=== PATIENT | female | born 1960 | race Caucasian/White ===

== ENCOUNTER → 2019-10-02 08:30 | Outpatient (CLI) | payer OTHER, SELFPAY ==
[2019-10-02 10:42] LABS: Anion Gap 5 (5-15); BUN 22 mg/dL (7-18); BUN/Creat Ratio 25.3 RATIO (10-20); Calcium,Total 9.8 mg/dL (8.5-10.1); Chloride 110 mmol/L (98-107); Creatinine, Serum 0.87 mg/dL (0.55-1.02); EST Glomerular Filtration Rate 71 mL/min (>60); Est Glom Filt Rate - Afr Amer 86 mL/min (>60); Glucose 87 mg/dL (74-106); PTHIN 34.3 pg/mL (18.4-80.1); Potassium 4.2 mmol/L (3.5-5.1); Sodium Level 143 mmol/L (136-145); Vitamin D,25 Hydroxy 39.5 ng/mL (29.95-100.01)
== END ==
PROVIDERS: Family Provider Family Medicine; PCP Family Medicine
DX: E21.0 Primary hyperparathyroidism (principal); E83.52 Hypercalcemia; R00.0 Tachycardia, unspecified; E55.9 Vitamin D deficiency, unspecified
CPT/HCPCS: 36415; 80048; 82306; 82330; 83970; 84443

== ENCOUNTER → 2020-01-28 11:51 | Outpatient (CLI) | payer OTHER, SELFPAY ==
--- NOTE | 2020-01-28 11:53 | RAD_ITS ---
STUDY: X-RAY CHEST REASON FOR EXAM: Female, 59 years old. Cough, wheezing x 2 weeks TECHNIQUE: PA and lateral views of the chest. COMPARISON: None. FINDINGS: Cardiac silhouette unremarkable. Pulmonary vascularity unremarkable. Aorta unremarkable. No focal airspace opacities. No pleural effusions. Upper abdomen unremarkable. Osseous structures intact. No pneumothorax. RAD/Chest PA and Lateral IMPRESSION: No acute cardiopulmonary findings Electronically Signed: Loy Hernandez, at 21:53 EDT Tel , Service support ,
== END ==
PROVIDERS: PCP Family Medicine; Referring Provider Family Medicine; Visit Provider Family Medicine
DX: R06.2 Wheezing (principal); R05 Cough
CPT/HCPCS: 71046

== ENCOUNTER 2020-02-02 17:25 | Emergency (ER) | payer OTHER, SELFPAY ==
[2020-02-02 17:26] VITALS: BP 144/89; PULSE 87; RESP 16; TEMP 36.6; O2SAT 100; BMI 24.6
--- NOTE | 2020-02-02 18:08 | ED.VIS.GEN ---
History of Present Illness Chief Complaint: Hypertension Informant: Patient Onset: Days Context: Sudden Onset Timing: Continuous Quality: Elevated blood pressure and URI symptoms Current Severity: Mild Maximum Severity: Moderate Worsened by: Anxiety, respiratory symptoms worse with activity. Relieved by: Dyspnea improves with rest. Associated Symptoms: Shaking chills, malaise and fatigue Narrative: Patient contacted her primary care physician because of her blood pressure readings at home she was instructed to come to the emergency department. Patient has no neurologic symptoms. She has no ocular symptoms. She has no difficulty with speech or swallowing. She denies chest pain or back pain. She does give respiratory symptoms and consistent with infectious etiology. This may represent bacterial or viral. Since symptoms started greater than 3 weeks ago and are improving and she is not hypoxic or febrile or tachypneic imaging was not obtained. Prior similar symptoms: No Recent Illness/Hospitalization: No - Past Medical History (1) No significant past medical history Status: Acute Past Medical History - Allergies and Home Meds Allergies/Adverse Reactions: Allergies Penicillins Allergy (Verified 02/02/20 17:29) Hives Sulfa (Sulfonamide Antibiotics) Adverse Reaction (Verified 02/02/20 17:29) Upset Stomach Primary Care Physician: Shani Villanueva MD [Primary Care Provider] - Prior records reviewed: No Past Medical History: None Surgical History: no surgical history Lives: Spouse/ Significant Other Smoking Status: Never smoker Alcohol: None Drugs: None Review of Systems General: Reports: Chills, Malaise, Sweats. Denies: Fever, Subjective, Weight loss, - Eyes: Denies: Visual changes - bilaterally, Blurred Vision - bilaterally ENT: Reports: Rhinorrhea, Sore throat. Denies: Bilateral ear pain Cardiovascular: Reports: Heart racing - Patient had 3 heart tracings and the fastest her heart rate was 101. The other tracing revealed a sinus rhythm rate of 93 and third tracing was sinus rhythm with a rate of 78.. Denies: Chest pain, Palpitations Respiratory: Reports: Dyspnea, Cough, Dyspnea on exertion. Denies: Sputum, Orthopnea, Paroxysmal nocturnal dyspnea Gastrointestinal: Denies: Abdominal pain, Nausea, Vomiting, Diarrhea, Melena, Hematochezia Genitourinary: Denies: Dysuria, Hematuria, Frequency Musculoskeletal: Denies: Myalgias, Arthralgias, Neck pain, Back pain, Swelling, Extremity Pain, -, - Skin: Denies: Rash, Wounds Neurological: Reports: - - Denies problems with balance or coordination. She denies motor weakness.. Denies: Headache, Weakness, Parasthesia, Numbness Hematologic: Denies: Easy bruising, Easy bleeding Allergy: Denies: Uticaria Physical Exam Vital Signs/Narrative: Vital Signs Temp Pulse Resp BP Pulse Ox 02/02/20 17:26 97.8 F 87 16 144/89 H 100 Inital Vital Signs reviewed: Yes General: Well nourished, Well developed, No Acute Distress, - Head: Normocephalic, Atraumatic Eyes: Perrl, EOMI, - - Endoscopic exam reveals normal cup-to-disc ratio. There is no papilledema. There is no AV nicking. There is no exudate or hemorrhage noted.. Negative for: Pale conjunctiva, Scleral icterus ENT: Moist mucous membranes, TM's clear, Nasal congestion. Negative for: No rhinorrhea Neck: Supple, Nontender, No lymphadenopathy, No JVD Cardiovascular: Regular rate, Regular rhythm, No murmurs, Normal S1, Normal S2 Respiratory: No distress, CTA bilaterally, Chest nontender Abdomen: Soft, Nontender, Nondistended, Normal bowel sounds Rectal: Deferred Back: Nontender, Normal Inspection Extremities: Nontender, No edema. Negative for: Calf Tenderness Skin: Normal color, No rash, No Trauma. Negative for: Cyanosis, Diaphoresis, Jaundice Neurological: Alert, Oriented x3, Cranial nerves II-XII grossly intact, Normal Strength, Normal Sensation, Normal DTR - 1+ symmetric upper and lower extremity and right to left, Normal Gait, - - Cerebellar testing normal. Psychological: Normal affect, Normal Mood Diagnostic/Tx/Re-eval Laboratory Results 02/02/20 02/02/20 17:35 18:00 Sodium 141 Potassium 3.5 Chloride 108 H Carbon Dioxide 29.0 Anion Gap 4 L BUN 21 H Creatinine 0.85 Estim Creat Clear Calc 59.68 Est GFR (MDRD) Af Amer 89 Est GFR (MDRD) Non-Af 73 BUN/Creatinine Ratio 24.8 H Glucose 117 H Calcium 9.8 Urine Color Yellow Urine Clarity Clear Urine pH 7.0 Ur Specific [place] 1.010 Urine Protein Negative Urine Glucose (UA) Normal Urine Ketones Negative Urine Occult Blood Negative Urine Nitrite Negative Urine Bilirubin Negative Urine Urobilinogen Normal Ur Leukocyte Esterase Negative Urine RBC 0 SEEN Urine WBC 0 SEEN Ur Squamous Epith Cells 0-5 SEEN Urine Bacteria 0 SEEN Urine Mucus 0 SEEN There is no evidence of endorgan injury. Most recent blood pressure was 131/84. Patient was instructed to follow-up with her primary care physician. From a respiratory standpoint patient is a 2-year 5 patient for novel coronavirus and per the [facility] and the [facility] medical board testing is not indicated - Medical Decision Making Since patient's respiratory symptoms are improving and her vital signs are unremarkable imaging was not obtained. Because patient's blood pressure was elevated last time it was checked with 3 to 4 months ago will obtain basic metabolic panel to assess renal function and UA to assess for proteinuria and hematuria. If her blood pressure remains elevated will consider starting on antihypertensive medication. ED Disposition - Plan for ED Patient: Disposition: Home or Assisted Living Diagnosis: Suspected 2019 novel coronavirus infection, Viral upper respiratory tract infection with cough, Elevated blood pressure reading without diagnosis of hypertension Instructions: HYPERTENSION, To Be Confirmed Referrals: Shani Villanueva MD [Primary Care Provider] - 1-2 Weeks
[2020-02-02 18:10] LABS: Bacteria 0 SEEN /hpf (None Seen); Mucous, Urine 0 SEEN /hpf (<or=2+); Red Blood Cells-Urine 0 SEEN /hpf (0-5); White Blood Cells 0 SEEN /hpf (0-5)
[2020-02-02 18:20] LABS: Color, Urine Yellow (Yellow); Glucose, Dipstick Normal (Normal); Ketone-Dipstick Negative (Negative); Leukocyte Esterase-Dipstick Negative /ul (Negative); Nitrite-Dipstick Negative (Negative); Occult Blood-Urine Negative /ul (Negative); Protein-Dipstick Negative (Negative); Urine Bilirubin Dipstick Negative (Negative); Urine Clarity Clear (Clear); Urine Urobilinogen Normal (Normal)
[2020-02-02 18:25] LABS: Squamous Epithelial Cells - UA 0-5 SEEN /hpf (5-10)
[2020-02-02 18:29] LABS: Anion Gap 4 (5-15); BUN 21 mg/dL (7-18); BUN/Creat Ratio 24.8 RATIO (10-20); Calcium,Total 9.8 mg/dL (8.5-10.1); Chloride 108 mmol/L (98-107); Creatinine, Serum 0.85 mg/dL (0.55-1.02); EST Glomerular Filtration Rate 73 mL/min (>60); Est Glom Filt Rate - Afr Amer 89 mL/min (>60); Estimated Creatinine Clearance 59.68 ml/min; Glucose 117 mg/dL (74-106); Potassium 3.5 mmol/L (3.5-5.1); Sodium Level 141 mmol/L (136-145)
[2020-02-02 19:19] VITALS: BP 131/84; PULSE 88; RESP 16; O2SAT 100
== END 2020-02-02 19:27 | disposition home or self-care (01) ==
PROVIDERS: Emergency Provider Emergency Medicine; PCP Family Medicine
DX: R03.0 Elevated blood-pressure reading, without diagnosis of hypertension (principal); J06.9 Acute upper respiratory infection, unspecified
CPT/HCPCS: 80048; 81001; 99282

== ENCOUNTER → 2022-05-01 | Outpatient (CLI) | payer OTHER, SELFPAY ==
[2022-05-01 09:52] LABS: Hematocrit 43.3 % (37-47); Hemoglobin 14.3 g/dL (12.0-15.0); Mean Corpuscular Hgb 30.7 pg (27.0-32.0); Mean Corpuscular Volume 92.9 fL (81-99); Mean Platelet Vol. 9.2 fl (6.2-12.0); Platelet Count 260 K/mm3 (150-450); RBC Distribution Width CV 13.5 % (11.6-14.6); RBC Distribution Width SD 45.9 fl (35.1-43.9); Red Blood Count 4.66 M/mm3 (4.2-5.4); White Blood Count 10.9 K/mm3 (4.4-11.0)
[2022-05-01 10:23] LABS: ALB/GLOB Ratio 1.1 RATIO (0.9-2.4); AST(SGOT) 17 U/L (15-37); Alanine Aminotransfer ALT/SGPT 32 U/L (13-56); Albumin, Serum 3.8 g/dL (3.2-5.0); Alkaline Phosphatase 74 U/L (45-117); Anion Gap 9 (5-15); BUN 16 mg/dL (7-18); BUN/Creat Ratio 18.2 RATIO (10-20); Calcium,Total 9.9 mg/dL (8.5-10.1); Chloride 106 mmol/L (98-107); Cholesterol 199 mg/dL (200); Creatinine, Serum 0.88 mg/dL (0.55-1.02); EST Glomerular Filtration Rate 69 mL/min (>60); Est Glom Filt Rate - Afr Amer 84 mL/min (>60); Globulin 3.4 g/dL (2.2-4.2); Glucose 83 mg/dL (74-106); High Density Lipoprotein 68 mg/dL; Potassium 3.8 mmol/L (3.5-5.1); Protein, Total 7.2 g/dL (6.4-8.2); Sodium Level 142 mmol/L (136-145); Triglycerides 158 mg/dL; Very Low Density Lipoprotein 32 mg/dL (5-40)
== END | disposition home or self-care (01) ==
PROVIDERS: PCP Family Medicine
DX: R03.0 Elevated blood-pressure reading, without diagnosis of hypertension (principal)
CPT/HCPCS: 36415; 80053; 80061; 85027

== ENCOUNTER → 2022-12-07 | Outpatient (CLI) | payer OTHER, SELFPAY ==
[2022-12-07 12:46] LABS: Free T3 2.8 pg/mL (2.18-3.98); T4 Free Direct 1.07 ng/dL (0.76-1.46); Thyroid Stim Hormone (TSH) 1.62 uIU/mL (0.358-3.74)
[2022-12-10 20:55] LABS: Anti-Thyroglobulin AB < 1.0 IU/mL (0.0-0.9); Thyroid Peroxidase AB 11 IU/mL (0-34)
== END | disposition home or self-care (01) ==
PROVIDERS: PCP Family Medicine
DX: L65.9 Nonscarring hair loss, unspecified (principal)
CPT/HCPCS: 36415; 84432; 84439; 84443; 84481; 86376; 86800

== ENCOUNTER 2024-07-26 09:55 | Emergency (ER) | payer OTHER, SELFPAY ==
[2024-07-26 09:56] VITALS: BP 158/79; PULSE 83; RESP 16; TEMP 36.6; O2SAT 100; BMI 27.3
--- NOTE | 2024-07-26 10:49 | EX.ED.DYSGE1 ---
HPI History of Present Illness Chief Complaint: Rash Detail of Chief Complaint: Rash Informant: patient Narrative Narrative: Patient presents with a rash that started 5 days ago. Patient states initially she had a swollen lymph node in the right side of her face for which she started taking some clindamycin that she had leftover for a couple of days and then that resolved. [place] 3 small lesions on her right hand that then progressed. She was seen by primary care physician who then started her on low-dose prednisone. Subsequently she developed more lesions and followed up with a human resources office manager 3 days ago who did a skin biopsy and was started on 60 mg of prednisone daily. Patient states that subsequently she developed lesions in her mouth and called dermatology and was told that they thought she could have [id number]-mouth. Patient then read online that prednisone could potentially make the symptoms worse. She comes in for evaluation. She denies fevers or chills or sweats. She denies recent illness otherwise. [facility] Medical History (Updated 07/26/24 @ 12:[address] Rubi Amaya, DO) Heart disease Home Medications ?Medication ?Instructions ?Recorded ?Last Taken ?Type amlodipine 2.5 mg tablet 2.5 mg PO DAILY 03/28/21 Unknown History budesonide 32 mcg/actuation nasal 1 spray intranasal DAILY 03/28/21 Unknown History spray (Rhinocort Allergy) MAGIC MOUTH WASH (BMX) 180 mL 10 ml PO Q6H PRN PRN pain #180 mL 07/26/24 Unknown Rx suspension Allergy/AdvReac Type Severity Reaction Status Date / Time Penicillins Allergy Hives Verified 03/28/21 08:15 Sulfa (Sulfonamide AdvReac Upset Verified 03/28/21 08:15 Antibiotics) Stomach Surgical History (Updated 03/28/21 @ 08:17 by Malu Hernandez RN) Hx of cholecystectomy Social History Smoking Status: Never smoker ROS ROS ED Review of Systems ROS Unobtainable: other Constitutional Constitutional ED: Reports lethargy; Denies chills, fever(s), sweats or weight loss Eyes Eyes: Denies blurry vision, change in vision or diplopia ENT ENT ED: Denies rhinorrhea or sore throat Cardiovascular Cardiovascular: Denies chest pain, orthopnea or racing heartbeat Respiratory/Chest Respiratory/Chest: Denies cough, dyspnea, dyspnea on exertion, orthopnea or sputum Gastrointestinal Gastrointestinal: Denies abdominal pain, diarrhea, nausea or vomiting Genitourinary Genitourinary ED: Denies dysuria, hematuria or urinary frequency Musculoskeletal Musculoskeletal: Denies arthralgias, back pain, myalgias or neck pain Integumentary Reports rash; Denies abscess or Abrasions Neurologic Neurologic: Denies headache(s) or weakness Psychiatric Psychiatric: Denies anxiety, depression or suicidal thoughts Endocrine Endocrinology: Denies polydipsia, polyphagia or polyuria Hematologic/Lymphatic Hematologic/Lymphatic: Denies easy bleeding, easy bruising or lymphadenopathy Allergic/Immunologic Allergic/Immunologic ED: Denies mouth swelling, tongue swelling or urticaria EXAM Physical Exam Narrative Exam Narrative: Not ill-appearing or toxic appearing Const Vital Signs: 07/26/24 09:56 Temperature 98 F Temperature Source Oral Pulse Rate 83 Respiratory Rate 16 Blood Pressure 158/79 H Blood Pressure Mean 105 Pulse Ox 100 Oxygen Delivery Method Room Air Positive well nourished and well developed General Appearance ED: well developed and NAD HEENT Reports TM's clear and moist mucous membranes HEENT Narrative: Patient with ulcerated lesions involving the hard palate as well as the buccal mucosa as well as the gingiva. normocephalic and atraumatic; Negative for trauma or tenderness Tympanic Membrane ED: Yes TM's clear Eyes PERRL and EOMs intact bilaterally General Eye ED: Negative for pale conjunctiva or scleral icterus Neck no lymphadenopathy, supple and no JVD General: Negative for tenderness Chest Wall inspection of chest normal and palpation of chest normal Chest: Negative for tenderness Resp normal respiratory effort and clear to auscultation bilaterally Effort and Inspection: Negative for respiratory distress or pain with movement Auscultation: Negative for rhonchi, wheezes or diminished lung sounds Cardio regular rate, regular rhythm, S1 normal heart sound, S2 normal heart sound and no murmurs Peripheral Pulses: pulses 2+ throughout GI normal to inspection, nondistended, normoactive bowel sounds, soft to palpation, non-tender, non-distended and no masses Back/Spine no CVA tenderness and no thoracic nor lumbar tenderness Extremity normal to inspection General Extremety ED: Negative for edema General Extremity: Negative for edema Neuro oriented x3, CN's II-XII intact bilaterally, no sensory deficits noted and gait normal Sensorium / Orientation: awake, alert, oriented to person, oriented to place and oriented to time Motor Exam: strength 5/5 throughout and strength abnormal Psych mental status grossly normal Skin no rashes or lesions noted and no wounds Skin Narrative: Erythematous raised papules involving the trunk as well as the upper and lower extremities at times coalescing into small vesicles on the hand that tend to weep. There is no evidence of rash on the soles of the feet. MDM MDM MDM Narrative Medical decision making narrative: Patient presents with rash that started 5 days ago and was seen by dermatology and had a biopsy. Clinically I suspect this may be [id number]-mouth. I will obtain some basic labs CBC and basic metabolic profile. Will recommend symptomatic care. Recommend she await biopsy results from her human resources office manager. Clinically I suspect [id number]-[id number]-mouth. I did obtain basic labs CBC with differential showed an elevated white count of 14.5 which I suspect is related to prednisone use. She does have a elevated lymphocytic absolute count which would go along with a viral infection. Chemistries essentially unremarkable. I did give patient a dose of Benadryl 25 mg p.o. Will order Magic mouthwash solution for her oral lesions and advised to follow-up with her human resources office manager for biopsy results. Lab Data Labs: Laboratory Results - last 24 hr 07/26/24 11:25 WBC 14.5 H RBC 4.36 Hgb 13.4 Hct 40.7 MCV 93.3 MCH 30.7 MCHC 32.9 RDW Std Deviation 47.6 H RDW Coeff of Kyra 13.8 Plt Count 235 MPV 8.7 Immature Gran % (Auto) 0.500 Neut % (Auto) 50.6 Lymph % (Auto) 35.4 Ramsey % (Auto) 6.8 Eos % (Auto) 6.1 H Baso % (Auto) 0.6 Absolute Neuts (auto) 7.4 Absolute Lymphs (auto) 5.13 H Nucleated RBC % 0 Sodium 139 Potassium 3.7 Chloride 108 H Carbon Dioxide 26.0 Anion Gap 5 BUN 26 H Creatinine 1.05 H Estim Creat Clear Calc 52.09 Est GFR (MDRD) Af Amer 68 Est GFR (MDRD) Non-Af 56 L BUN/Creatinine Ratio 24.8 H Glucose 96 Calcium 9.5 Discharge Plan Triage Chief Complaint: Rash ED Provider: Ungur,Remus Dx/Rx/DC Orders Clinical Impression: Hand, foot and mouth disease Instructions: ED Hand Foot Mouth Disease (Child), ED Viral Rash, [place] (Child) Prescriptions: New MAGIC MOUTH WASH (BMX) 180 mL suspension 10 ml PO Q6H PRN PRN (Reason: pain) Qty: 180 0RF Rx Instructions: diphenhydramine 12.5 mg/5 mL oral liquid 60 mL; aluminum-mag hydroxide-simethicone 400 mg-400 mg-40 mg/5 mL oral susp 60 mL; Lidocaine Viscous 2 % mucosal solution 60 mL; Per 180 mL No Action amlodipine 2.5 mg tablet 2.5 mg PO DAILY budesonide [Rhinocort Allergy] 32 mcg/actuation spray,non-aerosol 1 spray intranasal DAILY Rx Instructions: administer into each nostril Primary Care Provider: Dayan Sweet Referrals: Shani Villanueva MD [Non-Staff] - Print Language: Setswana Disposition Disposition: Home, Self Care
[2024-07-26 11:33] LABS: Absolute Lymphocyte Count 5.13 X10^3/uL (0.83-4.51); Absolute Neutrophil Count 7.4 X10^3/uL (2.0-7.7); Basophil# 0.09 X10^3/uL; Basophil% 0.6 % (0-1); Eosinophil# 0.88 X10^3/uL; Eosinophils% 6.1 % (0-5); Hematocrit 40.7 % (37-47); Hemoglobin 13.4 g/dL (12.0-15.0); Lymphocyte # 5.13 X10^3/ul (0.83-4.51); Lymphocyte % 35.4 % (19-41); Mean Corp Hgb Conc 32.9 g/dL (32-36); Mean Corpuscular Hgb 30.7 pg (27.0-32.0); Mean Corpuscular Volume 93.3 fL (81-99); Mean Platelet Vol. 8.7 fl (6.2-12.0); Monocyte# 0.99 X10^3/uL; Monocyte% 6.8 % (0-10); NRBC Flagged by Analyzer 0 % (0-5); Neutrophil # 7.35 X10^3/uL (2.7-7.7); Neutrophil % 50.6 % (47-70); POSITIVE DIFFERENTIAL YES; Platelet Count 235 K/mm3 (150-450); RBC Distribution Width CV 13.8 % (11.6-14.6); RBC Distribution Width SD 47.6 fl (35.1-43.9); Red Blood Count 4.36 M/mm3 (4.2-5.4); White Blood Count 14.5 K/mm3 (4.4-11.0)
[2024-07-26 11:46] LABS: Differential Indicated SCAN CRITERIA MET
[2024-07-26 11:49] LABS: Anion Gap 5 (5-15); BUN 26 mg/dL (7-18); BUN/Creat Ratio 24.8 RATIO (10-20); Calcium,Total 9.5 mg/dL (8.5-10.1); Chloride 108 mmol/L (98-107); Creatinine, Serum 1.05 mg/dL (0.55-1.02); EST Glomerular Filtration Rate 56 mL/min (>60); Est Glom Filt Rate - Afr Amer 68 mL/min (>60); Estimated Creatinine Clearance 52.09 ml/min; Glucose 96 mg/dL (74-106); Potassium 3.7 mmol/L (3.5-5.1); Sodium Level 139 mmol/L (136-145)
[2024-07-26] MEDS: DiphenhydrAMINE 25 MG Capsule PO (12:24)
[2024-07-26 12:36] VITALS: BP 139/92; PULSE 76; RESP 15; TEMP 36.3; O2SAT 98
== END 2024-07-26 12:37 | disposition home or self-care (01) ==
PROVIDERS: Emergency Provider Emergency Medicine; PCP Family Medicine; Visit Provider Emergency Medicine
DX: B08.4 Enteroviral vesicular stomatitis with exanthem (principal)
CPT/HCPCS: 36415; 80048; 85025; 99282

== ENCOUNTER 2024-07-29 21:22 | Emergency (ER) | payer OTHER, SELFPAY ==
[2024-07-29 21:24] VITALS: BP 115/60; PULSE 66; RESP 18; TEMP 36.4; O2SAT 99
--- NOTE | 2024-07-29 22:44 | EX.ED.DYSGE1 ---
HPI History of Present Illness Chief Complaint: Allergic Reaction Informant: patient Onset/Context/Timing Onset: Days Context: Gradual Onset Timing: Continuous Current Severity: Moderate Maximum Severity: Moderate Narrative Narrative: 63.-year-old female history of mitral prolapse and long COVID. States she has had a rash since last Saturday or Saturday. She started with sore throat and right facial lymphadenopathy. Eventually was seen by a Dr. Davon Palomino at [facility] dermatology. Patient had a biopsy and wound culture and has not had the results returned as of yet. She was placed on oral steroid cream that she states has not done her any benefit and she thinks this is getting worse. It is primarily on her hands inside her mouth on her feet. She said that itches some but it is more painful. Prior similar symptoms: No Recent Illness/Hospitalization: No PFSH PFSH Medical History Heart disease Home Medications ?Medication ?Instructions ?Recorded ?Last Taken ?Type amlodipine 2.5 mg tablet 2.5 mg PO DAILY 03/28/21 Unknown History budesonide 32 mcg/actuation nasal 1 spray intranasal DAILY 03/28/21 Unknown History spray (Rhinocort Allergy) MAGIC MOUTH WASH (BMX) 180 mL 10 ml PO Q6H PRN PRN pain #180 mL 07/26/24 Unknown Rx suspension Allergy/AdvReac Type Severity Reaction Status Date / Time Penicillins Allergy Hives Verified 07/29/24 21:23 Sulfa (Sulfonamide AdvReac Upset Verified 07/29/24 21:23 Antibiotics) Stomach Surgical History Hx of cholecystectomy Social History Smoking Status: Never smoker ROS ROS ED ROS Narrative Prior sore throat. Rash. Constitutional Constitutional ED: Denies chills or fever(s) ENT ENT ED: Denies ear pain Cardiovascular Cardiovascular: Denies chest pain Respiratory/Chest Respiratory/Chest: Denies cough or dyspnea Gastrointestinal Gastrointestinal: Denies abdominal pain Genitourinary Genitourinary ED: Denies dysuria or hematuria Musculoskeletal Musculoskeletal: Denies arthralgias Integumentary Denies abscess or Abrasions Neurologic Neurologic: Denies headache(s) Psychiatric Psychiatric: Denies anxiety or depression Endocrine Endocrinology: Denies cold intolerance Hematologic/Lymphatic Hematologic/Lymphatic: Reports none Allergic/Immunologic Allergic/Immunologic ED: Denies mouth swelling, tongue swelling or urticaria EXAM Physical Exam Narrative Exam Narrative: 63-year-old female no acute distress. Sitting upright in bed. Vital signs are stable and afebrile. H EENT exam pupils round react light. Really no significant lesions around her lips or chin. She has some red lesions on her hard palate. No trouble swallowing or breathing. Neck nontender. No lymphadenopathy. Lungs clear to auscultation. Heart regular rate and rhythm no murmur rate about 65. Chest wall nontender. No significant rash on her chest. Abdomen soft nontender. No rash on her abdomen. Back nontender no rash. Moving all 4 extremities. On her hands and by her ankles she has red raised rash that is vesicular. There is no pustules. There is no lymphangitic streaking. There is no axillary or inguinal lymphadenopathy. There is no cellulitis. No abscess. No sloughing of skin. She is awake and alert. No focal motor deficits. Const Vital Signs: 07/29/24 21:24 07/29/24 23:23 Temperature 97.6 F L Temperature Source Temporal Pulse Rate 66 69 Respiratory Rate 18 16 Blood Pressure 115/60 128/75 H Blood Pressure Mean 78 92 Pulse Ox 99 99 Oxygen Delivery Method Room Air Room Air Positive well nourished and well developed; Negative for cachectic, contractures or unkempt General Appearance ED: well developed and NAD; Negative for unkempt, cachectic, contractures, cyanotic, diaphoretic or pallor Nutritional Appearance: Negative for cachectic HEENT Reports moist mucous membranes; Denies dry mucous membranes HEENT Narrative: Hard palate red lesions. Negative for trauma or tenderness Mouth ED: No dry mucous membranes Mouth: No dry mucous membranes Eyes PERRL and EOMs intact bilaterally General Eye ED: Negative for pale conjunctiva or scleral icterus Neck no lymphadenopathy, supple and no JVD General: Negative for tenderness Lymph Lymphatic: Negative for other Chest Wall inspection of chest normal and palpation of chest normal Resp normal respiratory effort and clear to auscultation bilaterally Effort and Inspection: Negative for retractions Auscultation: Negative for rales, rhonchi, wheezes or diminished lung sounds Cardio regular rate, regular rhythm, S1 normal heart sound and S2 normal heart sound Rhythm: Negative for abnormal rhythm GI normal to inspection, nondistended, normoactive bowel sounds, non-tender, non-distended and no masses Inspection: Negative for abdominal distention Auscultation: normoactive bowel sounds Palpation: soft; Negative for tender, guarding, mass or rebound tenderness present Back/Spine no CVA tenderness General Back: Negative for CVA tenderness Cervical Spine: Negative for cervical spine tenderness Thoracic Spine / Upper Back: Negative for thoracic spinal tenderness or paraspinal muscle tenderness Lumbar Spine / Lower Back: Negative for lumbar spinal tenderness Extremity normal to inspection General Extremety ED: Negative for edema or tenderness General Extremity: Negative for edema Neuro oriented x3 and CN's II-XII intact bilaterally Sensorium / Orientation: alert; Negative for orientation impaired, lethargic or stuporous Motor Exam: strength 5/5 throughout; Negative for general weakness or strength abnormal Psych mental status grossly normal Appearance: Negative for unkempt Attitude: No agitated Mood & Affect: Negative for depressed, anxious or tearful Skin No no rashes or lesions noted, no wounds and skin turgor normal Skin Narrative: Red vesicular raised rash on hands and lower extremities. No pustules. No sloughing of skin. No lymphangitic streaking. General Skin Exam: elasticity normal; Negative for jaundice or pallor Rashes: rashes noted Trauma: Negative for abrasion MDM MDM MDM Narrative Medical decision making narrative: 63-year-old female with a week plus history of a rash on her hands and lower extremities. Being treated with a steroid cream but is getting worse instead of better. She was seen in the emergency department several days ago slightly elevated white count but otherwise unremarkable. Repeat exam unchanged at 12:30 AM. The rash has not worsened. Or change. Discussed with the patient and recommended further testing be done in the ER. I did try to contact the academic affairs specialist in their office and there is no one on-call for them tonight or available so I am unable to obtain her recent test results from their office. I did review her recent labs which are basically unremarkable. She will stop the steroid which she thinks is making it worse. She will follow-up with a academic affairs specialist tomorrow. She requested something for pain she will be given a [place] here and I will send a prescription into her pharmacy. History & Record Review Discussion w/independent historian: Patient Additional record(s) reviewed:: Prior inpatient record, Prior outpatient record, Prior ED visit and Prior labs Lab Data Attestation: I reviewed the patient's lab results. Discharge Plan Triage Chief Complaint: Allergic Reaction ED Provider: Roger Alegria Dx/Rx/DC Orders Prescriptions: No Action amlodipine 2.5 mg tablet 2.5 mg PO DAILY budesonide [Rhinocort Allergy] 32 mcg/actuation spray,non-aerosol 1 spray intranasal DAILY Rx Instructions: administer into each nostril MAGIC MOUTH WASH (BMX) 180 mL suspension 10 ml PO Q6H PRN PRN (Reason: pain) Qty: 180 0RF Rx Instructions: diphenhydramine 12.5 mg/5 mL oral liquid 60 mL; aluminum-mag hydroxide-simethicone 400 mg-400 mg-40 mg/5 mL oral susp 60 mL; Lidocaine Viscous 2 % mucosal solution 60 mL; Per 180 mL Primary Care Provider: Dayan Sweet Referrals: Dayan Sweet MD [Primary Care Provider] - Print Language: Divehi
[2024-07-29 23:23] VITALS: BP 128/75; PULSE 69; RESP 16; O2SAT 99
[2024-07-30] MEDS: HYDROcodone Bitartrate/Apap 5/325 Tablet PO (00:41)
[2024-07-30 00:45] VITALS: BP 122/76; PULSE 79; RESP 18; TEMP 36.8; O2SAT 100
== END 2024-07-30 00:46 | disposition home or self-care (01) ==
PROVIDERS: Emergency Provider Emergency Medicine; PCP Family Medicine; Visit Provider Emergency Medicine
DX: R21 Rash and other nonspecific skin eruption (principal); Z90.49 Acquired absence of other specified parts of digestive tract
CPT/HCPCS: 99282

== ENCOUNTER → 2024-08-14 | Outpatient (CLI) | payer OTHER, SELFPAY ==
[2024-08-14 12:09] LABS: Absolute Lymphocyte Count 5.91 X10^3/uL (0.83-4.51); Absolute Neutrophil Count 5.4 X10^3/uL (2.0-7.7); Basophil# 0.09 X10^3/uL; Basophil% 0.7 % (0-1); Eosinophil# 0.81 X10^3/uL; Eosinophils% 6.1 % (0-5); Hematocrit 39.9 % (37-47); Hemoglobin 12.9 g/dL (12.0-15.0); Lymphocyte # 5.91 X10^3/ul (0.83-4.51); Lymphocyte % 44.6 % (19-41); Mean Corp Hgb Conc 32.3 g/dL (32-36); Mean Corpuscular Volume 95.9 fL (81-99); Mean Platelet Vol. 8.9 fl (6.2-12.0); Monocyte# 0.98 X10^3/uL; Monocyte% 7.4 % (0-10); NRBC Flagged by Analyzer 0 % (0-5); Neutrophil # 5.41 X10^3/uL (2.7-7.7); Neutrophil % 40.7 % (47-70); POSITIVE DIFFERENTIAL YES; Platelet Count 368 K/mm3 (150-450); RBC Distribution Width CV 14.3 % (11.6-14.6); RBC Distribution Width SD 50.2 fl (35.1-43.9); Red Blood Count 4.16 M/mm3 (4.2-5.4); White Blood Count 13.3 K/mm3 (4.4-11.0)
[2024-08-14 12:13] LABS: Differential Indicated SCAN CRITERIA MET
[2024-08-14 12:21] LABS: Erythrocyte Sedimentation Rate 5 mm/hr (0-30)
[2024-08-14 12:46] LABS: Differential Comment SCANNED
[2024-08-14 12:47] LABS: Platelet Estimate ADEQUATE (ADEQ); Red Cell Morphology NORM C+C NORMAL (NORM C&C)
[2024-08-14 13:44] LABS: AST(SGOT) 33 U/L (15-37); Alanine Aminotransfer ALT/SGPT 127 U/L (13-56); Albumin, Serum 3.8 g/dL (3.2-5.0); Alkaline Phosphatase 122 U/L (45-117); Anion Gap 5 (5-15); BUN 22 mg/dL (7-18); BUN/Creat Ratio 24.9 RATIO (10-20); CRP < 2.90 mg/L (0.0-3.0); Chloride 105 mmol/L (98-107); Creatinine, Serum 0.88 mg/dL (0.55-1.02); EST Glomerular Filtration Rate 69 mL/min (>60); Est Glom Filt Rate - Afr Amer 83 mL/min (>60); Globulin 3.7 g/dL (2.2-4.2); Glucose 104 mg/dL (74-106); Hepatitis B Surface Antibody Reactive; Hepatitis B Surface Antigen Non-Reactive (Nonreactive); Hepatitis C Antibody Non-Reactive (Nonreactive); Potassium 3.8 mmol/L (3.5-5.1); Protein, Total 7.5 g/dL (6.4-8.2); Rheumatoid Factor < 10.0 IU/mL (<15); Sodium Level 136 mmol/L (136-145)
[2024-08-15 13:08] LABS: ANTINUCLEAR ANTIBODIES DIRECT Negative (Negative)
[2024-08-21 18:08] LABS: CCP IgG Antibodies 9 units (0-19); HLA B27 Positive (.)
== END | disposition home or self-care (01) ==
PROVIDERS: PCP Family Medicine; Referring Provider Internal Medicine Rheumatology; Visit Provider Internal Medicine Rheumatology
DX: M02.30 Reiter's disease, unspecified site (principal); M79.7 Fibromyalgia; Z79.899 Other long term (current) drug therapy
CPT/HCPCS: 36415; 80053; 81374; 85025; 85652; 86038; 86140; 86200; 86431; 86706; 86803; 87340

== ENCOUNTER → 2024-12-21 | Outpatient (CLI) | payer OTHER, SELFPAY ==
[2024-12-21 12:33] LABS: Absolute Lymphocyte Count 4.62 X10^3/uL (0.83-4.51); Basophil# 0.08 X10^3/uL; Basophil% 0.8 % (0-1); Eosinophil# 0.37 X10^3/uL; Eosinophils% 3.8 % (0-5); Hematocrit 42.7 % (37-47); Hemoglobin 13.7 g/dL (12.0-15.0); Lymphocyte # 4.62 X10^3/ul (0.83-4.51); Mean Corp Hgb Conc 32.1 g/dL (32-36); Mean Corpuscular Volume 93.4 fL (81-99); Mean Platelet Vol. 9.6 fl (6.2-12.0); Monocyte# 0.79 X10^3/uL; NRBC Flagged by Analyzer 0 % (0-5); Neutrophil # 3.95 X10^3/uL (2.7-7.7); Neutrophil % 40.2 % (47-70); Platelet Count 261 K/mm3 (150-450); RBC Distribution Width CV 13.5 % (11.6-14.6); RBC Distribution Width SD 46.3 fl (35.1-43.9); Red Blood Count 4.57 M/mm3 (4.2-5.4); White Blood Count 9.8 K/mm3 (4.4-11.0)
[2024-12-21 12:39] LABS: ALB/GLOB Ratio 1.1 RATIO (0.9-2.4); AST(SGOT) 23 U/L (15-37); Alanine Aminotransfer ALT/SGPT 38 U/L (13-56); Albumin, Serum 3.6 g/dL (3.2-5.0); Alkaline Phosphatase 80 U/L (45-117); Anion Gap 5 (5-15); BUN 17 mg/dL (7-18); BUN/Creat Ratio 18.7 RATIO (10-20); Calcium,Total 9.3 mg/dL (8.5-10.1); Chloride 109 mmol/L (98-107); Creatinine, Serum 0.91 mg/dL (0.55-1.02); EST Glomerular Filtration Rate 66 mL/min (>60); Est Glom Filt Rate - Afr Amer 80 mL/min (>60); Globulin 3.2 g/dL (2.2-4.2); Glucose 71 mg/dL (74-106); Potassium 3.9 mmol/L (3.5-5.1); Protein, Total 6.8 g/dL (6.4-8.2); Sodium Level 140 mmol/L (136-145)
== END | disposition home or self-care (01) ==
LOC: MTLAB 10:26
PROVIDERS: PCP Family Medicine; Referring Provider Internal Medicine Rheumatology; Visit Provider Internal Medicine Rheumatology
DX: M02.30 Reiter's disease, unspecified site (principal); Z79.899 Other long term (current) drug therapy; M79.7 Fibromyalgia
CPT/HCPCS: 36415; 80053; 85025